=== PATIENT | male | born 1960 | race Caucasian/White ===

== ENCOUNTER → 2016-05-25 | Outpatient (CLI) | payer OTHER | LOC: RAD 15:01 | PROVIDERS: ATTEND Nurse Practitioner Family | DX: M54.5 Low back pain (principal) | CPT/HCPCS: 72110 ==

== ENCOUNTER → 2016-05-31 | Outpatient (CLI) | payer OTHER | LOC: RAD 11:56 | PROVIDERS: ATTEND Nurse Practitioner Family | DX: M54.5 Low back pain (principal); Z77.018 Contact with and (suspected) exposure to other hazardous metals | CPT/HCPCS: 70140; 72148 ==